=== PATIENT | male | born 1960 | race Two or more races ===

== ENCOUNTER 2021-10-09 08:53 | Outpatient (CLI) | payer OTHER | END 2021-10-09 23:59 | disposition home or self-care (01) | LOC: LAB 08:53 | PROVIDERS: ATTEND Specialist | DX: Z01.812 Encounter for preprocedural laboratory examination (principal); Z20.822 Contact with and (suspected) exposure to COVID-19 | CPT/HCPCS: U0003; C9803 ==

== ENCOUNTER 2021-10-13 07:04 | Day surgery (SDC) | payer OTHER ==
[~2021-10-13] VITALS: Ht 167.6 cm; Wt 101.6 kg
--- NOTE | 2021-10-13 07:00 | NUR ---
DAY SURGERY OPENING NOTES PATIENT A/O X 4, AMBULATORY, ABLE TO MAKE NEEDS KNOWN. TOLERATING WELL ON ROOM AIR WITH NO S/S RESPIRATORY DISTRESS. NO COMPLAINTS OF PAIN OR DISCOMFORT. PATIENT TO RECEIVE R KNEE ARTHROPLASTY TODAY. ALL CONSENT FORMS SIGNED. SAFETY MEASURES IN PLACE: BED IN LOWEST LOCKED POSITION, SIDE RAILS UP X 2, CALL LIGHT WITHIN REACH. WILL CONTINUE TO MONITOR.
[2021-10-13] MEDS ORDERED: BUPIVACAINE 0.5 % PF 150 MG/30 ML VIAL ONE (07:21)
[2021-10-13] MEDS ORDERED: methylPREDNISolone ACETATE 80 MG/ML VIAL ONE (07:22)
[2021-10-13] MEDS ORDERED: hydrALAZINE HCL IV 20 MG VIAL ONE (08:39)
[2021-10-13] MEDS ORDERED: FENTANYL PF 100MCG/2ML AMPUL ONE (08:39)
[2021-10-13] MEDS ORDERED: PROPOFOL 20 ML IV ONE (08:39)
[2021-10-13] MEDS ORDERED: MIDAZOLAM HCL 2 MG/2ML VIAL ONE (08:40)
--- NOTE | 2021-10-13 12:00 | NUR ---
DAY SURGERY RN NOTES PATIENT RETURNED FROM DAY SURGERY WITH VITAL SIGNS WNL, NO COMPLAINTS OF PAIN OR DISCOMFORT, IV ACCESS # 20 G IN R AC CLEAN, INTACT, AND FLUSHING WELL. DRESSING IN PLACE ON R KNEE C/D/I. PER MD ORDERS, DRESSING CAN BE REMOVED IN 48 HOURS AND PATIENT CAN DISCHARGE WHEN COMFORTABLE. SAFETY MEASURES IN PLACE: BED IN LOWEST LOCKED POSITION, SIDE RAILS UP X 2, CALL LIGHT WITHIN REACH. WILL CONTINUE TO MONITOR.
--- NOTE | 2021-10-13 13:00 | NUR ---
DAY SURGERY DISCHARGE NOTES PATIENT MADE AWARE OF MD DISCHARGE INSTRUCTIONS AND SIGNED SHEET CONFIRMING UNDERSTANDING OF MD DISCHARGE INSTRUCTIONS. PATIENT ALSO CONFIRMED POSSESSION OF ALL BELONGINGS AND SIGNED BELONGINGS SHEET. IV LINE AND ID BAND REMOVED. DISCHARGE INSTRUCTIONS EXPLAINED TO PATIENT AND AND BOTH VERBALIZED UNDERSTANDING. PATIENT TRANSFERRED TO WHEELCHAIR AND TRANSPORTED OFF OF UNIT ACCOMPANIED BY AND BLOOD BANK BOOKING CLERK. PATIENT ABLE TO AMBULATE WELL AND STABLE AT TIME OF DISCHARGE. COPIES OF DISCHARGE PAPERWORK AND EDUCATIONAL MATERIAL PROVIDED.
[2021-10-13] MEDS ORDERED: HYDROCODONE/APAP 5/325MG TABLET PO PRN (15:00)
== END 2021-10-13 13:00 | disposition home or self-care (01) ==
LOC: DS 07:04 → MED 07:05 → UNDOADMIN 07:05 → DS 13:00 → UNDODISIN 17:00
PROVIDERS: ATTEND Specialist
DX: S83.241A Other tear of medial meniscus, current injury, right knee, initial encounter (principal); M94.261 Chondromalacia, right knee; I10 Essential (primary) hypertension; Z98.890 Other specified postprocedural states; Z79.899 Other long term (current) drug therapy; X58.XXXA Exposure to other specified factors, initial encounter; Y93.89 Activity, other specified; Y92.89 Other specified places as the place of occurrence of the external cause; Y99.8 Other external cause status
CPT/HCPCS: 29881; J3490; J2704 ×2; J3010; J0360; J2370; J2250; A6253; A4217; G0378; J1040